=== PATIENT | female | born 1945 | race Caucasian/White ===

== ENCOUNTER 2017-11-08 06:44 | Day surgery (SDC) | payer MEDICARE ==
[~2017-11-08] VITALS: Ht 160 cm; Wt 59.9 kg
[~2017-11-08 06:44] MED LIST: LISI5 PO; SIMV10 PO
== END 2017-11-08 22:55 | disposition home or self-care (01) ==
LOC: ORSCMMR 06:44 → ORD 08:00 → ORSCMMR 22:55
PROVIDERS: Internal Medicine Gastroenterology
PROC: 0DJD8ZZ Inspection of Lower Intestinal Tract, Via Natural or Artificial Opening Endoscopic (ICD-10-PCS; principal; 2017-11-08 08:00)
DX: Z12.11 Encounter for screening for malignant neoplasm of colon (principal); K57.30 Diverticulosis of large intestine without perforation or abscess without bleeding; E03.9 Hypothyroidism, unspecified; K64.8 Other hemorrhoids; Z79.82 Long term (current) use of aspirin; Z79.899 Other long term (current) drug therapy
CPT/HCPCS: J7030

== ENCOUNTER → 2022-03-30 | Outpatient (CLI) | payer MEDICARE, OTHER | END | disposition home or self-care (01) | LOC: LAB 15:17 → LAB SHORT 15:17 | DX: N39.0 Urinary tract infection, site not specified (principal); R31.0 Gross hematuria; R31.29 Other microscopic hematuria | CPT/HCPCS: 87086 ==